=== PATIENT | female | born 1950 | race Caucasian/White ===

== ENCOUNTER 2018-10-01 22:54 | Emergency (ER) | payer OTHER, MEDICARE ==
[~2018-10-01] VITALS: Ht 160 cm; Wt 65.8 kg
[~2018-10-01 22:54] MED LIST: ASMANEX0.24 G1 IH; BENADRYL25 MG PO; CALCIUM 600 +1 EAC1 PO; CELEBREX 200 M200 MG PO; CENTRUM SILVER1 EAC4 PO; FISH OIL 1,001000 M2 PO; FORADIL INH; IRON159 MG PO; MACROBID 100 M100 M1 PO; MELATONIN3 MG PO; NORCO 5-325 TA1 EACH PO; PYRIDIUM200 MG PO; SINGULAIR 10 MG10 MG PO; SUPER B COMPLE150 MG PO; VENTOLIN HFA 1818 GM INH; VITAMIN C + RO500 MG PO; VITAMIN D31000 UNI2 PO; XARELTO10 MG PO
[2018-10-01] MEDS ORDERED: BREO ELLIPTA 11 EACH PO (23:17)
[2018-10-01 23:25] LABS: HEMATOCRIT 39.7 % (37.0-47.0); HEMOGLOBIN 13.5 gm/dL (12.0-15.0); MCH 32.1 pg (26.0-34.0); MCV 94.4 fL (80.0-100.0); PLATELET COUNT 250 thou/uL (150-400); RBC 4.21 mil/uL (4.20-5.00); RDW 14.3 % (10.5-14.5)
[2018-10-01 23:33] LABS: ANION GAP 9 mmol/L (7-16); BUN 14 mg/dL (7-18); CALCIUM 9.2 mg/dL (8.5-10.1); CHLORIDE 103 mmol/L (98-107); CO2 28 mmol/L (21-32); CREATININE 0.6 mg/dL (0.6-1.0); GLUCOSE 111 mg/dL (74-106); POTASSIUM 3.8 mmol/L (3.5-5.1); SODIUM 140 mmol/L (136-145)
[2018-10-01 23:42] LABS: ALBUMIN 3.6 g/dL (3.4-5.0); SGOT 21 U/L (15-37); SGPT 23 U/L (30-65); TOTAL BILIRUBIN 0.3 mg/dL (<0.1-1.0); TOTAL PROTEIN 7.2 g/dL (6.4-8.2); TROPONIN-I <0.06 ng/mL (<0.06)
[2018-10-01 23:50] LABS: PLATELET ESTIMATE NORMAL
[2018-10-01] MEDS ORDERED: NAPROXEN375 MG PO (23:55)
[2018-10-01] MEDS ORDERED: NORFLEX100 MG PO (23:55)
[2018-10-02 00:18] VITALS: BP 149/65
--- NOTE | 2018-10-02 15:14 | EKG ---
[address] [place] [address] ELECTROCARDIOGRAM REPORT Name: ELI FERRARA Room #: DEP [facility]#: [id number] Admission: 10/01/18 Attend Phys: Discharge: 10/02/18 Date of : 48 Report #: [id number] THIS REPORT FOR: //name// [facility] ED Test Date: 2018-10-01 Test Time: 23:16:24 Pat Name: ELI FERRARA Department: Room: Gender: F Yard Inspector: [facility] : 1950 Requested By: Jimbo Castro Order Number: [id number] MD: Sam Novak Measurements Intervals [place] Rate: 89 P: 15 SC: 154 QRS: -48 QRSD: 100 T: -4 QT: 369 QTc: 449 Interpretive Statements Sinus rhythm Consider right ventricular hypertrophy Inferior infarct, old Compared to ECG 11/06/2009 11:25:04 Myocardial infarct finding now present Sinus bradycardia no longer present Left-axis deviation no longer present Electronically Signed On 10-02-2018 15:14:06 IMAGER by Sam Novak [email or web address] <ELECTRONICALLY SIGNED> By: Sam Novak MD 10/02/18 1514 [id number] Sam Novak MD /EPI
== END 2018-10-02 00:18 | disposition home or self-care (01) ==
LOC: ER 22:54
PROVIDERS: Emergency Medicine
DX: M43.6 Torticollis (principal); R07.89 Other chest pain; J45.909 Unspecified asthma, uncomplicated; Z86.2 Personal history of diseases of the blood and blood-forming organs and certain disorders involving the immune mechanism; Z88.0 Allergy status to penicillin

== ENCOUNTER 2019-01-15 13:35 | Emergency (ER) | payer OTHER, MEDICARE ==
[~2019-01-15] VITALS: Ht 160 cm; Wt 64.4 kg
[~2019-01-15 13:35] MED LIST changes: -CIPRO500 MG PO; -FLAGYL500 M1 PO; -ONDANSETRON HCL4 M2 PO
[2019-01-15] MEDS ORDERED: CIPRO500 MG PO (15:51)
[2019-01-15] MEDS ORDERED: FLAGYL500 M1 PO (15:51)
[2019-01-15] MEDS ORDERED: ONDANSETRON HCL4 M2 PO (15:52)
[2019-01-15 16:55] VITALS: BP 127/62
== END 2019-01-15 16:56 | disposition home or self-care (01) ==
LOC: ER 13:35
DX: R11.2 Nausea with vomiting, unspecified (principal); J45.909 Unspecified asthma, uncomplicated; Z88.0 Allergy status to penicillin; Z86.2 Personal history of diseases of the blood and blood-forming organs and certain disorders involving the immune mechanism

== ENCOUNTER → 2019-01-15 | Outpatient (CLI) | payer OTHER, MEDICARE ==
[~2019-01-15] MED LIST changes: +BREO ELLIPTA 11 EACH PO; +CIPRO500 MG PO; +FLAGYL500 M1 PO; +NAPROXEN375 MG PO; +NORFLEX100 MG PO; +ONDANSETRON HCL4 M2 PO
[2019-01-15 10:02] LABS: HEMATOCRIT 47.9 % (37.0-47.0); HEMOGLOBIN 16.6 gm/dL (12.0-15.0); MCH 32.1 pg (26.0-34.0); MCHC 34.7 g/dL (28.0-37.0); MCV 92.5 fL (80.0-100.0); RBC 5.18 mil/uL (4.20-5.00); RDW 14.2 % (10.5-14.5)
[2019-01-15 10:17] LABS: ALBUMIN 4.2 g/dL (3.4-5.0); POTASSIUM 4.5 mmol/L (3.5-5.1); TOTAL BILIRUBIN 0.7 mg/dL (<0.1-1.0); TOTAL PROTEIN 7.7 g/dL (6.4-8.2)
[2019-01-15 10:41] LABS: ATYPICAL LYMPHS 3 %
[2019-01-15 10:42] LABS: LARGE PLATELETS OCCASIONAL; PLATELET ESTIMATE SLIGHTLY DECREASED
[2019-01-15 10:43] LABS: PLATELET COUNT 100 thou/uL (150-400)
== END ==
LOC: CAT 08:57 → LABMALL 08:57
PROVIDERS: Nurse Practitioner
DX: K57.30 Diverticulosis of large intestine without perforation or abscess without bleeding (principal); K76.0 Fatty (change of) liver, not elsewhere classified; N28.1 Cyst of kidney, acquired; K76.89 Other specified diseases of liver; Z96.642 Presence of left artificial hip joint

== ENCOUNTER 2019-01-24 13:55 | Emergency (ER) | payer OTHER, MEDICARE ==
[~2019-01-24] VITALS: Ht 129.5 cm; Wt 65.8 kg
[~2019-01-24 13:55] MED LIST changes: +CIPRO500 MG PO; +FLAGYL500 M1 PO; +ONDANSETRON HCL4 M2 PO
[2019-01-24 15:16] LABS: URINE BILIRUBIN NEGATIVE (Negative); URINE BLOOD NEGATIVE (Negative); URINE CLARITY CLEAR; URINE COLOR YELLOW; URINE GLUCOSE-RANDOM* NEGATIVE (Negative); URINE KETONES NEGATIVE (Negative); URINE LEUKOCYTES-REFLEX NEGATIVE (Negative); URINE NITRITE-REFLEX NEGATIVE (Negative); URINE PROTEIN (DIPSTICK) NEGATIVE (Negative); URINE UROBILINOGEN 0.2 E.U./dl (0.2-1.0)
[2019-01-24 16:13] LABS: HEMOGLOBIN 14.3 gm/dL (12.0-15.0); MCH 31.8 pg (26.0-34.0); MCV 93.5 fL (80.0-100.0); PLATELET COUNT 372 thou/uL (150-400); RBC 4.49 mil/uL (4.20-5.00); RDW 14.9 % (10.5-14.5); WBC 8.6 thou/uL (4.0-11.0)
[2019-01-24 16:25] LABS: CALCIUM 9.1 mg/dL (8.5-10.1); CREATININE 0.7 mg/dL (0.6-1.0); POTASSIUM 4.5 mmol/L (3.5-5.1)
[2019-01-24 16:35] LABS: ALBUMIN 3.2 g/dL (3.4-5.0); TOTAL BILIRUBIN 0.5 mg/dL (<0.1-1.0)
[2019-01-24 16:43] LABS: ABSOLUTE NEUTROPHILS 4.7 thou/uL (1.4-8.2); ANISOCYTOSIS 1+
[2019-01-24 16:44] LABS: POLYCHROMASIA OCCASIONAL
[2019-01-24] MEDS ORDERED: MOBIC15 MG PO (17:24)
[2019-01-24] MEDS ORDERED: HYDROCODONE-AP1 EAC6 PO (17:24)
[2019-01-24] MEDS ORDERED: ZANAFLEX2 MG PO (17:26)
[2019-01-24 18:03] VITALS: BP 137/53
--- NOTE | 2019-01-25 01:00 | EKG ---
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: JUAN CARLOS : 1950 Requested By: Narda Hargrove Order Number: [id number] MD: Singh Marti Measurements Intervals [place] Rate: 96 P: 17 MT: 152 QRS: -58 QRSD: 90 T: -14 QT: 351 QTc: 444 Interpretive Statements Sinus rhythm Inferior infarct, old Poor R wave progression Nonspecific ST/T wave changes Compared to ECG 10/01/2018 23:16:24 No significant changes Electronically Signed On 01-25-2019 1:00:07 CDT by Singh Marti [email or web address] ��������������������������������������������� <ELECTRONICALLY SIGNED> ���������������������������������������� By: Singh Marti MD ��������������������������������������������� 01/25/19 0100 143 143 Singh Marti MD /PONCE
== END 2019-01-24 18:11 | disposition home or self-care (01) ==
LOC: ER 13:55
PROVIDERS: Physician Assistant
DX: M25.511 Pain in right shoulder (principal); R10.84 Generalized abdominal pain; J45.909 Unspecified asthma, uncomplicated; Z88.0 Allergy status to penicillin

== ENCOUNTER 2019-02-04 11:09 | Emergency (ER) | payer OTHER, MEDICARE ==
[~2019-02-04] VITALS: Ht 160 cm; Wt 62.6 kg
[~2019-02-04 11:09] MED LIST changes: +HYDROCODONE-AP1 EAC6 PO; +MOBIC15 MG PO; +ZANAFLEX2 MG PO
[2019-02-04 11:32] LABS: URINE BILIRUBIN NEGATIVE (Negative); URINE BLOOD TRACE (Negative); URINE CLARITY CLEAR; URINE COLOR YELLOW; URINE GLUCOSE-RANDOM* NEGATIVE (Negative); URINE KETONES NEGATIVE (Negative); URINE NITRITE-REFLEX NEGATIVE (Negative); URINE PROTEIN (DIPSTICK) NEGATIVE (Negative); URINE UROBILINOGEN 0.2 E.U./dl (0.2-1.0)
[2019-02-04 11:33] LABS: URINE LEUKOCYTES-REFLEX 1+ (Negative)
[2019-02-04 11:45] LABS: BACTERIA-REFLEX 1-9 Few /HPF (None Seen); CASTS None Seen /LPF (None Seen); CRYSTALS None Seen /LPF (None Seen); SQUAMOUS 0-3 Few /LPF (0-3); URINE WBC-REFLEX 6-15 Few /HPF (0-5)
[2019-02-04 11:46] LABS: URINE RBC None Seen /HPF (0-2)
[2019-02-04 11:52] LABS: HEMATOCRIT 39.7 % (37.0-47.0); HEMOGLOBIN 13.6 gm/dL (12.0-15.0); MCH 32.1 pg (26.0-34.0); MCHC 34.2 g/dL (28.0-37.0); MCV 93.8 fL (80.0-100.0); PLATELET COUNT 265 thou/uL (150-400); RBC 4.23 mil/uL (4.20-5.00); RDW 14.8 % (10.5-14.5); WBC 5.8 thou/uL (4.0-11.0)
[2019-02-04 12:01] LABS: CALCIUM 9.5 mg/dL (8.5-10.1); CREATININE 0.7 mg/dL (0.6-1.0); POTASSIUM 4.7 mmol/L (3.5-5.1)
[2019-02-04 12:08] LABS: ALBUMIN 3.4 g/dL (3.4-5.0); TOTAL BILIRUBIN 0.7 mg/dL (<0.1-1.0); TOTAL PROTEIN 7.3 g/dL (6.4-8.2)
[2019-02-04] MEDS ORDERED: BENTYL 20 MG TA20 M1 PO (13:38)
[2019-02-04] MEDS ORDERED: PROBIOTIC1 EAC1 PO (13:38)
[2019-02-04] MEDS ORDERED: PROTONIX 20 MG20 M1 PO (13:38)
[2019-02-04] MEDS ORDERED: KEFLEX500 M1 PO (13:43)
[2019-02-04 13:45] VITALS: BP 138/69
[2019-02-04 14:14] LABS: ABSOLUTE NEUTROPHILS 4.1 thou/uL (1.4-8.2); ATYPICAL LYMPHS 1 %
[2019-02-04 14:15] LABS: ANISOCYTOSIS 1+
== END 2019-02-04 13:45 | disposition home or self-care (01) ==
LOC: ER 11:09
PROVIDERS: Nurse Practitioner Family
DX: N39.0 Urinary tract infection, site not specified (principal); J45.909 Unspecified asthma, uncomplicated; Z88.0 Allergy status to penicillin

== ENCOUNTER → 2019-11-04 | Outpatient (CLI) | payer OTHER, MEDICARE ==
[~2019-11-04] MED LIST changes: +BENTYL 20 MG TA20 M1 PO; +KEFLEX500 M1 PO; +PROBIOTIC1 EAC1 PO; +PROTONIX 20 MG20 M1 PO
== END ==
LOC: ULTRA 09:05
DX: R10.32 Left lower quadrant pain (principal)

== ENCOUNTER → 2021-10-17 | Outpatient (CLI) | payer OTHER, MEDICARE ==
[~2021-10-17] MED LIST changes: +ALLERGY RELIEF25 MG PO; +CEROVITE SENIO1 EACH PO; +NEURIVA PO; +PROBIOTIC1 EAC7 PO; +PROTONIX 20 MG20 MG PO
[2021-10-17 10:51] LABS: HEMATOCRIT 35.3 % (37.0-47.0); HEMOGLOBIN 11.5 gm/dL (12.0-15.0); MCH 29.8 pg (26.0-34.0); MCHC 32.7 g/dL (28.0-37.0); RBC 3.87 mil/uL (4.20-5.00); RDW 15.9 % (10.5-14.5); WBC 6.8 thou/uL (4.0-11.0)
[2021-10-17 10:59] LABS: URINE BILIRUBIN NEGATIVE (Negative); URINE BLOOD NEGATIVE (Negative); URINE CLARITY CLEAR; URINE COLOR YELLOW; URINE GLUCOSE-RANDOM* NEGATIVE (Negative); URINE KETONES NEGATIVE (Negative); URINE LEUKOCYTES-REFLEX TRACE (Negative); URINE NITRITE-REFLEX NEGATIVE (Negative); URINE PROTEIN (DIPSTICK) NEGATIVE (Negative); URINE UROBILINOGEN 0.2 E.U./dl (0.2-1.0)
[2021-10-17 11:01] LABS: ALBUMIN 3.6 g/dL (3.4-5.0); CALCIUM 8.8 mg/dL (8.5-10.1); CREATININE 0.6 mg/dL (0.6-1.0); POTASSIUM 3.8 mmol/L (3.5-5.1)
[2021-10-17 11:07] LABS: INR 0.99; PROTIME 10.8 Seconds (10.5-12.1)
--- NOTE | 2021-10-17 11:18 | EKG ---
[place] [address] [facility] [place] [address] ELECTROCARDIOGRAM REPORT Name: ELI FERRARA Room #: REG [facility]#: [id number] Admission: 10/17/21 Attend Phys: Alejo Acevedo MD Discharge: Date of : 48 Report #: [id number] [facility] Test Date: 2021-10-17 Test Time: 11:03:53 Pat Name: ELI SHERIDAN Department: Room: Gender: F Arcgis Developer: ADELAIDA FLANNERY : 1950 Requested By: Alejo Acevedo Order Number: [id number] : Madhu Amin Measurements Intervals [place] Rate: 59 P: 13 RI: 142 QRS: -35 QRSD: 103 T: -20 QT: 435 QTc: 431 Interpretive Statements Sinus rhythm Abnormal R-wave progression, early transition Left ventricular hypertrophy Nonspecific T abnormalities, inferior leads Compared to ECG 01/24/2019 14:37:57 Left ventricular hypertrophy now present T-wave abnormality now present Poor R-wave progression no longer present ST (T wave) deviation no longer present Electronically Signed On 10-17-2021 11:18:14 DATABASE TESTER by Madhu Amin [email or web address] <ELECTRONICALLY SIGNED> By: Madhu Amin MD, [facility] 10/17/21 1118 1103 1103 Madhu Amin MD, [facility] /EPI
== END ==
LOC: PAC 10:02
PROVIDERS: ATTEND Orthopaedic Surgery
DX: Z01.812 Encounter for preprocedural laboratory examination (principal); Z01.810 Encounter for preprocedural cardiovascular examination; Z96.641 Presence of right artificial hip joint

== ENCOUNTER 2021-10-24 12:38 | Inpatient (IN) | payer OTHER, MEDICARE ==
[~2021-10-24] VITALS: Ht 157.5 cm; Wt 68.0 kg
--- NOTE | ~2021-10-24 | O ---
[facility] [place] [address] OPERATIVE REPORT Name: ELI FERRARA Room #: REG [facility].#: [id number] Admission: 10/24/21 Attend Phys: Alejo Acevedo MD Discharge: Date of : 48 Report #: [id number] THIS REPORT FOR: cc: Kush Aguilera James A. DO Abraham, Scott M. MD ~ DATE OF SERVICE: 10/24/2021 PREOPERATIVE DIAGNOSIS: Right hip osteoarthritis. POSTOPERATIVE DIAGNOSIS: Right hip osteoarthritis. PROCEDURE: Right total hip arthroplasty. SURGEON: Alejo Acevedo MD IMMIGRATION SERVICES OFFICER: Iram Foster PA-C. INDICATION FOR IMMIGRATION SERVICES OFFICER: Throughout the case, extensive retraction, manipulation of the hip including dislocation and reduction was required. This was afforded to me by my events administrative assistant. ANESTHESIA: LMA. IMPLANTS: A [employer] size 10, Synergy high offset cemented stem, a size 48 R3 acetabular cup with one acetabular screw and a size 32+0 cobalt chrome head. ESTIMATED BLOOD LOSS: 100 mL. COMPLICATIONS: None. SPECIMENS: None. CONDITION UPON LEAVING THE OR: Stable. INDICATIONS FOR PROCEDURE: The patient is a 71-year-old female who has right hip osteoarthritis. She had failed conservative measures for this and after discussion with her, she elected for right total hip arthroplasty. DESCRIPTION OF PROCEDURE: Risks, benefits, alternatives, and complications were discussed in detail with the patient including, but not limited to, risk of anesthesia, risk of damage to nerves, arteries, blood vessels, risk for infection, bleeding, risk for continued hip pain, leg length discrepancy, instability and need for reoperation. Informed consent was obtained from the patient. Right hip was appropriately marked in the preoperative holding area. [address] [address] OPERATIVE REPORT Name: ELI SWARTZ Room #: REG [facility].#: [id number] Admission: 10/24/21 Attend Phys: Alejo Acevedo MD Discharge: Date of : 48 Report #: [id number] IV clindamycin was given for preoperative antibiotics. She was brought to the operating room and placed in supine position on the operating room table. LMA anesthesia was induced without complication. She was then placed in the left lateral decubitus position with the right hip uppermost. Right hip and lower extremity were prepped and draped in normal sterile fashion. Timeout was performed properly identifying the patient and procedure as well as the instrumentation and implants. All in the operating room in agreement. Standard posterior approach to the hip was made with 10 blade through the skin. Dissection was taken down sharply to the fascia and deep flaps were developed and the IT band was cleaned off with Montalvo elevator. Fresh 10 blade was used to make an incision in the IT band and this was taken proximally and distally with curved Morin scissor. Charnley retractor was placed. Trochanteric bursa was taken down with Bovie cautery. Piriformis tendon was identified, tagged and taken down with Bovie. Short external rotators were also taken down with Bovie cautery. Capsulotomy was made and capsule ends were tagged for later repair. Hip was dislocated. There were osteoarthritic change of the femoral head. Femoral neck cut was made 1 cm proximal to the lesser trochanter based on preoperative templating and femoral head was removed. Deep acetabular retractors were placed. Labrum was removed, sharply opened, resected with Bovie cautery. Acetabulum was then sequentially reamed up to a size 48, at which point there was excellent bleeding cancellous bone. A size 47 trial cup was placed, found to have a good fit. Final size 48 R3 acetabular cup was placed and seated. One acetabular screw was placed for backup fixation and a polyethylene liner for a 32 head was placed. Attention was turned to the femur. This was reamed and broached up to a size 10, at which point the size 10 broach was stable, was trialed with a high offset neck and a 32+0 head. Hip was reduced, taken through range of motion, found to be stable, found to have equal leg lengths. Hip was dislocated. Broach was removed and final size 10 Synergy cemented stem was cemented in place using standard cementation techniques. After the cement cured, this was trialed with a 32+0 head. Hip again was reduced, taken through range of motion, found to be stable, found to have equal leg lengths. Hip was dislocated one last time and a final size 32.0 cobalt chrome head was placed. Hip was reduced, taken through range of motion, found to be stable, found to have equal leg lengths. Wound was thoroughly irrigated with normal saline. A periarticular injection using morphine, ropivacaine, epinephrine, and Toradol was placed around the hip joint capsule. A gram of vancomycin was placed deep in the joint. The capsule and piriformis were repaired with 0 FiberWire. Fascia was closed with 0 Vicryl. Skin was closed with 2-0 Vicryl, skin stapled, and a LOLIS dressing was applied. The patient tolerated this procedure well and went to recovery room under care of anesthesia postoperatively. By: [id number] [id number] Alejo Acevedo MD /nt
[2021-10-24 13:41] VITALS: BP 136/74
[2021-10-24 20:07] VITALS: BP 106/35
--- NOTE | 2021-10-25 07:17 | NUR ---
PT ADMITTED TO ROOM AROUND 1999. PT ASSESSED TO BE AOX4 71F PRESENTING POST R HIP REPLACEMENT. ADMITTED PT TO ROOM AND COMPLETED FULL CHECKLIST. PT WAS ABLE TO REST QUIETLY THROUGHOUT THE NIGHT WITH NO COMPLAINTS. PT STABLE ON ROOM AIR, POSTOP FLUIDS INFUSING, ANTIBIOTICS X2, LOLIS DRESSING INTACT, ICE PACK ON, AND PAIN CONTROLLED WITH HYDRO. NO FURTHER COMPLAINTS, WILL CONT TO MONITOR.
[2021-10-25 08:09] VITALS: BP 114/60
[2021-10-25 08:52] VITALS: BP 114/60
[2021-10-25 11:42] VITALS: BP 114/60
--- NOTE | 2021-10-25 11:45 | NUR ---
DC plan s/p rt EDDI is for home with hh. Pt has had [facility] in the past and would like to use them again. The [facility] liason was on site and visited with the pt. They can accept her at [facility]. She already has a FWW and her sister is planning to stay with her at [facility] for 2 wks. Pt instructed to get cooperative education director/stool riser [facility]. Final [facility] orders will need to be faxed to intake.
--- NOTE | 2021-10-25 12:30 | NUR ---
RD consult stating "healing". Pt s/p R total hip replacement. Pt states she is a vegetarian and is versed in the process for calling in alternative orders for meals. She reports being knowledgable in high protien foods and does not report any concerns with her weight or appetite at this time. Planis to d/c home with HH on d/c. Place at low nutrition risk.
[2021-10-25 15:27] VITALS: BP 114/60
[2021-10-25 21:22] VITALS: BP 116/43
--- NOTE | 2021-10-26 06:19 | NUR ---
NO ACUTE EVENTS THIS SHIFT. PT UP TO BSC W/O CONCERN OVERNIGHT. PAIN WAS MINIMAL OVERNIGHT. IV FLUIDS GIVEN PER ORDERS. SELF TURNS PERFORMED
[2021-10-26 08:05] VITALS: BP 125/54
--- NOTE | 2021-10-26 09:38 | NUR ---
ASSUMED PT CARE THIS AM. PT IS ALERT & ORIENTED X4. PT HAS LOLIS DRESSING ON R HIP, BILATERAL SEUN HOSES, ICE PACK AND SCD. GIVEN SCHEDULED MEDICATIONS AND PAIN MEDICATION THIS AM PRIOR WORKING WITH PHYSICAL THERAPY. PER PHYSICAL THERAPY OK AND SAFE FOR DC. WILL CONTINUE TO MONITOR PT. FOLLOW POC.
--- NOTE | 2021-10-26 10:59 | NUR ---
patient to discharge home today. abby from [facility] delivered. [facility] has obtained orders.
== END 2021-10-26 14:00 | disposition home health service (06) | DRG 470 ==
LOC: OR → 4S 19:50 → OR 19:51 → 4S 19:51
PROVIDERS: ADMIT Orthopaedic Surgery; ATTEND Orthopaedic Surgery
PROC: 0SR9069 Replacement of Right Hip Joint with Oxidized Zirconium on Polyethylene Synthetic Substitute, Cemented, Open Approach (ICD-10-PCS; principal; 2021-10-24)
DX: M16.11 Unilateral primary osteoarthritis, right hip (principal); Z20.822 Contact with and (suspected) exposure to COVID-19; Z88.0 Allergy status to penicillin
CPT/HCPCS: 10195; 50010; 50101; 50382; 50414; 51057; 51225; 51226; 51412; 53000; 53078; 53367; 56460; 56522; 56528; 56530; 57095; 57103; 62110; 62900; 70005